=== PATIENT | male | born 1995 | race Native Hawaiian/Other Pacific Islander ===

== ENCOUNTER 2019-11-10 10:01 | Emergency (ER) | payer OTHER, MEDICAID ==
--- NOTE | 2019-11-10 11:47 | ED Physician Documentation ---
History of Present Illness - Stated complaint Stated Complaint: LEFT FORARM PX - Chief complaint Chief Complaint: Ext Problem - Additonal information Additional information: This is a 24-year-old male who presents with left forearm pain which is been present for around 4 weeks. States that he was carrying a bundle of lines with muscles on them at work and the weight caused his left arm to hit a wooden beam, he had some immediate pain in his forearm afterwards, but then the pain completely resolved for about a week, then as he has been using his forearm he has had increasing pain more on the volar surface of the forearm. Is worse with motion such as grabbing things and with flexing the wrist. He does not see any redness or signs of infection in the arm. No elbow pain, no shoulder pain. He is taken some ibuprofen intermittently, and has been icing it, with minimal relief. Review of Systems Constitutional: denies: Fever Musculoskeletal: reports: Extremity pain Neurologic: denies: Numbness PD PAST MEDICAL HISTORY - Past Medical History Past Medical History: No - Past Surgical History Past Surgical History: No - Allergies Allergies/Adverse Reactions: Allergies Allergy/AdvReac Type Severity Reaction Status Date / Time No Known Drug Allergies Allergy Verified 11/10/19 10:07 - Social History Does the pt smoke?: No Smoking Status: Never smoker PD ED PE NORMAL - Vitals Vital signs reviewed: Yes - General General: Alert and oriented X 3, No acute distress - HEENT HEENT: PERRL - Neck Neck: Supple, no meningeal sign - Cardiac Cardiac: RRR - Respiratory Respiratory: No respiratory distress - Abdomen Abdomen: Non distended - Derm Derm: Warm and dry - Extremities Extremities: Other (Forearms are symmetric in appearance. There is no erythema no skin changes. Left forearm has very mild tenderness palpation of the proximal volar forearm muscles, there is no bony tenderness of the radius or the ulna. He has full active range of motion of his wrist and his elbow as well as his fingers. He has 5 out of 5 strength with hand squeeze finger abduction wrist extension and wrist flexion. There are no masses. The biceps tendon is present and intact. There is a small, chronic appearing area of hyperpigmentation on the medial forearm in the area where he thinks hit against the wood, no ecchymosis.) - Neuro Neuro: Alert and oriented X 3 - Psych Psych: Normal mood, Normal affect Results - Vitals Vitals: Oxygen O2 Source Room air PD MEDICAL DECISION MAKING - ED course ED course: Pt has no signs of fracture, full range of motion, no bony tenderness, his arm is normal in appearance, his tenderness is only in the muscle this appears to be a strain versus tendinitis. He has been able to use his arm for multiple weeks with this injury. No signs of infection. Neurovascularly intact. I reviewed supportive care, PCP follow up and pt was discharged in excellent condition. Departure - Departure Disposition: 01 Home, Self Care Clinical Impression: Forearm pain Qualifiers: Laterality: left Qualified Code(s): M79.632 - Pain in left forearm Condition: Good Follow-Up: Maren Roberts ARNP, [employer] [Primary Care Provider] - Comments: I think you likely have a tendinitis or muscle strain of your forearm. Please rest this as we discussed, you may ice it, and take 600 mg of ibuprofen every 6 hours. Follow-up with your primary care provider, and if you are developing concerning symptoms such as severe pain, or signs of infection such as redness or fever, return to the emergency department Forms: Activity restrictions Discharge Date/Time: 11/10/19 11:59
[2019-11-10 11:59] VITALS: BP 133/74
== END 2019-11-10 11:59 | disposition home or self-care (01) ==
LOC: ED 10:01
DX: M79.632 Pain in left forearm (principal); W22.09XA Striking against other stationary object, initial encounter; Y93.89 Activity, other specified; Y99.0 Civilian activity done for income or pay
CPT/HCPCS: 1040M; 99282